=== PATIENT | male | born 1940 | race Caucasian/White ===

== ENCOUNTER 2017-04-26 08:10 | Emergency (ER) | payer MEDICARE ==
[~2017-04-26] VITALS: Ht 175.3 cm; Wt 118.0 kg
[2017-04-26] MEDS ORDERED: DIAZEPAM 5 MG TABLET PO ONE (09:00)
[2017-04-26] MEDS ORDERED: KETOROLAC 30 MG/1 ML IM ONE (09:00)
[2017-04-26] MEDS ORDERED: KETOROLAC 30 MG/1 ML ONE (09:19)
[2017-04-26] MEDS ORDERED: DIAZEPAM 5 MG TABLET ONE (09:19)
[2017-04-26 10:36] VITALS: BP 132/72
== END 2017-04-26 10:38 | disposition home or self-care (01) ==
LOC: ED 08:40
DX: M54.2 Cervicalgia (principal); G89.29 Other chronic pain; I10 Essential (primary) hypertension
CPT/HCPCS: 72125; 96372; 99284; J1885